=== PATIENT | female | born 1965 ===

== ENCOUNTER 2024-04-06 08:25 | Day surgery (SDC) | payer OTHER ==
[~2024-04-06] VITALS: Ht 160 cm; Wt 81.6 kg
[2024-04-06] MEDS ORDERED: fentaNYL CITRATE/PF 100 MCG/2 ML AMP ONE ×2 (09:01→13:47)
[2024-04-06] MEDS ORDERED: MIDAZOLAM HCL 5 MG/5 ML VIAL ONE (09:02)
[2024-04-06 13:10] VITALS: O2SAT 97
[2024-04-06 13:40] VITALS: BP_SYST 126; PULSE 72; RESP 18
== END 2024-04-06 11:05 | disposition home or self-care (01) ==
LOC: SDS 08:25 → SMU 08:27 → SDS 11:05
PROVIDERS: ATTEND Internal Medicine
DX: Z12.11 Encounter for screening for malignant neoplasm of colon (principal); K63.89 Other specified diseases of intestine; K57.30 Diverticulosis of large intestine without perforation or abscess without bleeding; K64.8 Other hemorrhoids; K63.3 Ulcer of intestine; I10 Essential (primary) hypertension; E11.9 Type 2 diabetes mellitus without complications; Z90.710 Acquired absence of both cervix and uterus; Z79.899 Other long term (current) drug therapy
CPT/HCPCS: 45380; 99152; 88305; G0378; J2250; J3010